=== PATIENT | male | born 1960 | race Caucasian/White ===

== ENCOUNTER → 2022-01-21 | Outpatient (CLI) | payer OTHER | LOC: COL.RAD 13:41 | DX: M19.011 Primary osteoarthritis, right shoulder (principal) ==

== ENCOUNTER → 2022-01-29 | Outpatient (CLI) | payer OTHER | LOC: COL.RAD 07:59 | DX: M19.011 Primary osteoarthritis, right shoulder (principal); M75.01 Adhesive capsulitis of right shoulder; M75.51 Bursitis of right shoulder; M67.813 Other specified disorders of tendon, right shoulder ==